=== PATIENT | female | born 1995 | race Caucasian/White ===

== ENCOUNTER 2016-09-16 10:22 | Emergency (ER) | payer MEDICAID ==
[2016-09-16 10:39] VITALS: TEMP 99
[2016-09-16] MEDS ORDERED: IBUPROFEN 600 MG TAB PO ONE (10:46)
--- NOTE | 2016-09-16 11:24 | EDPHY ---
H & P Time Seen by Provider: 09/16/16 10:30 HPI/ROS: CHIEF COMPLAINT: Left ankle and knee pain History by patient HISTORY OF PRESENT ILLNESS: 21-year-old woman presents with pain in her left ankle and left lateral knee after slipping on tile kitchen floor last night falling. She has been unable to weight bear since. She has not taken anything for the pain. She localizes it mostly to the lateral and medial side of her ankle but also complains of lateral knee pain. Her last tetanus shot was within 10 years. She denies other pain or injury. REVIEW OF SYSTEMS: As in HPI, and all other systems reviewed and are negative Smoking Status: Never smoked Constitutional: Initial Vital Signs Temperature (C) 37.2 C 09/16/16 10:36 Heart Rate 75 09/16/16 10:36 Respiratory Rate 18 09/16/16 10:36 Blood Pressure 125/74 H 09/16/16 10:36 O2 Sat (%) 97 09/16/16 10:36 O2 Delivery Mode Room Air Allergies/Adverse Reactions: No Known Allergies Allergy (Unverified 09/16/16 10:35) Home Medications: Medication Instructions Recorded Hydrocodone/APAP 5/325 [[place] 1 - 2 tab PO Q4H PRN #10 tab 09/16/16 5/325 (*)] MDM/Departure - MDM Imaging Results: Imaging Impressions Ankle X-Ray 09/16/16 10:39 Impression: Nondisplaced posterior malleolar fracture. Knee X-Ray 09/16/16 10:39 Impression: No acute osseous findings. Imaging: Discussed imaging studies w/ stoker erector and servicer Radiologist, I viewed and interpreted images myself Medications Given: Discontinued Medications Ibuprofen (Motrin) 600 mg PO EDNOW ONE Stop: 09/16/16 10:47 Last Admin: 09/16/16 11:00 Dose: 600 mg - Depart Disposition: Home, Routine, Self-Care Clinical Impression: Closed left malleolar fracture Qualifiers: Encounter type: initial encounter Qualified Code(s): S82.892A - Other fracture of left lower leg, initial encounter for closed fracture Condition: Good Instructions: Ankle Fracture (ED) Additional Instructions: You were seen by Dr. Ritu Regan today. No weight-bearing on your left leg. Keep the splint dry. Follow up with an orthopedic doctor next week. He may see Dr. Gibson.. Take ibuprofen and ice your ankle as needed for pain and Vicodin for severe pain. Return for any worsening or new concerns. Prescriptions: Hydrocodone/APAP 5/325 [[place] 5/325 (*)] 1 - 2 tab PO Q4H PRN #10 tab PRN Reason: Pain, Moderate Referrals: RENEE WORTHINGTON,. [Primary Care Provider] - As per Instructions Merlin Gibson MD [Medical Doctor] - As per Instructions
[2016-09-16 12:00] VITALS: BP 125/70; PULSE 88; RESP 16; O2SAT 98
== END 2016-09-16 11:45 | disposition home or self-care (01) ==
LOC: CED 10:22
DX: S82.892A Other fracture of left lower leg, initial encounter for closed fracture (principal); W01.0XXA Fall on same level from slipping, tripping and stumbling without subsequent striking against object, initial encounter; Y92.000 Kitchen of unspecified non-institutional (private) residence as the place of occurrence of the external cause
CPT/HCPCS: 73562-PO; 73610-PO